=== PATIENT | male | born 1965 | race African-American/Black ===

== ENCOUNTER 2017-10-11 13:01 | Emergency (ER) | payer OTHER ==
[~2017-10-11] VITALS: Ht 180.3 cm; Wt 75.0 kg
[~2017-10-11 13:01] MED LIST: AMLO-512 PO; ANTIHYPERTENSIVE PO; [UNRECOGNIZED DRUG - REMARK] PO
[2017-10-11 13:05] VITALS: BP 171/87
== END 2017-10-11 14:44 | disposition home or self-care (01) ==
LOC: EMS 13:03
DX: H91.92 Unspecified hearing loss, left ear (principal); I10 Essential (primary) hypertension; E11.9 Type 2 diabetes mellitus without complications
CPT/HCPCS: 99282

== ENCOUNTER 2018-01-14 09:40 | Emergency (ER) | payer OTHER ==
[~2018-01-14] VITALS: Ht 172.7 cm; Wt 59.1 kg
[2018-01-14 09:58] LABS: GLUCOSE,POINT OF CARE 160 MG/DL (70-110)
[2018-01-14] MEDS ORDERED: AmLODIPine BESYLATE 5 MG TABLET PO ONE (11:45)
[2018-01-14] MEDS ORDERED: CloNIDine HCL 0.1 MG TABLET PO ONE (12:30)
[2018-01-14 12:53] VITALS: BP 220/120
== END 2018-01-14 13:25 | disposition home or self-care (01) ==
LOC: EMS 09:43
DX: H66.92 Otitis media, unspecified, left ear (principal); I10 Essential (primary) hypertension; E11.9 Type 2 diabetes mellitus without complications; F20.9 Schizophrenia, unspecified
CPT/HCPCS: 99283